=== PATIENT | male | born 1955 | race Caucasian/White ===

== ENCOUNTER 2017-02-09 09:56 | Emergency (ER) | payer OTHER ==
[~2017-02-09] VITALS: Ht 182.9 cm; Wt 82.0 kg
[2017-02-09 11:31] LABS: BASOPHILS % 0.2 % (0.0-2.0); HEMOGLOBIN. 13.3 g/dL (14.0-18.0); LYMPHOCYTES % 13.2 % (20.0-50.0); MEAN CORPUSCULAR HEMOGLOBIN 30.1 pg (28.0-32.0); MEAN CORPUSCULAR VOLUME 88.4 fL (80.0-94.0); MEAN PLATELET VOLUME 8.6 fl (7.4-10.4); MONOCYTES % 11.4 % (2.0-8.0); NEUTROPHILS % 73.2 % (40.0-76.0); PLATELET 232 x1000/uL (130-400); RED BLOOD CELL COUNT 4.41 mill/uL (4.7-6.1); RED CELL DISTRIBUTION WIDTH 11.7 % (11.6-14.6)
[2017-02-09 11:45] LABS: CARBON DIOXIDE 25 mEq/L (21-32); CHLORIDE 108 mEq/L (98-107); TROPONIN I < 0.02 ng/mL (0.00-0.04)
[2017-02-09 13:14] LABS: T4 FREE 2.41 ng/dL (0.76-1.46)
[2017-02-09 14:00] VITALS: BP 121/62
== END 2017-02-09 14:29 | disposition home or self-care (01) ==
LOC: ER 10:12
DX: E05.90 Thyrotoxicosis, unspecified without thyrotoxic crisis or storm (principal); R03.0 Elevated blood-pressure reading, without diagnosis of hypertension; Z85.6 Personal history of leukemia
CPT/HCPCS: 36415; 71010; 80053; 83735; 83880; 84439; 84443; 84481; 84484; 85025; 93005; 99285; Z7610